=== PATIENT | female | born 1930 | race Caucasian/White ===

== ENCOUNTER → 2018-01-26 | Outpatient (CLI) | payer MEDICARE ==
[~2018-01-26] MED LIST: ASPIRIN E.C. 8181 MG PO; AZO URINARY PAI95 MG PO; CALCIUM CITRAT200 MG PO; COLACE 100100 MG/CAP PO; COZAAR 25MG25 MG/TAB PO; CYTOMEL 5MC5 MCG/TAB PO; DAZIDOX10 MG PO; DESYREL 50MG50 MG PO; DUO-KAPS1 CAP PO; EFFEXOR 75M75 MG/TAB PO; FISH OIL1000 MG PO; GARLIC SUPPLEM300 MG PO; HCTZ 25MG TAB25 MG PO; IMDUR 30MG30 MG/TAB PO; KLOR-CON 1010 MEQ PO; LINZESS290CAP PO; LIPITOR20 MG PO; METAMUCIL3.4 GM/Dos PO; MEVACOR10 MG PO; MILK OF MA400 MG/5 M PO; MIRALAX PA17 GM/Dose PO; MOTRIN 200200 MG/TAB PO; MSIR30 MG PO; NASONEX SPRAY17 GM NS; NITROSTAT0.4 MG/TAB SL; NORVASC 5MG5 MG/TAB PO; PERCOCET 325 MG1 TAB PO; PLAVIX 75MG TAB75 MG PO; PRILOSEC 20MG20 MG PO; PROTONIX 40MG T40 MG PO; SYNTHROID0.05 MG/TA PO; SYSTANE 0.3-0.1 EACH OP; SYSTANE 0.4%-0.1 SOL OU; TOPROL XL 25MG25 MG PO; TRAVATAN Z 2.52.5 ML OD; TYLENOL 500MG500 MG PO; ULTRAM 50MG TAB50 MG PO; VITAMIN C500 MG PO; VITAMIN D 400400 IU PO; VITAMIN D31000 I1 PO; WOMEN'S DAILY F1 TAB PO; XALATAN EYE DROPS OU; XANAX .25M0.25 MG/TA PO; ZANTAC 150MG T150 MG PO; ZESTRIL 5MG5 MG PO; ZOCOR 20MG20 MG PO; ZYRTEC 10MG10 MG PO
== END ==
LOC: COL.PUL 01-05 10:00
DX: R06.02 Shortness of breath (principal); Z87.891 Personal history of nicotine dependence
CPT/HCPCS: J7674

== ENCOUNTER → 2018-08-15 | Outpatient (CLI) | payer MEDICARE | LOC: MC.RAD 09:59 | DX: N63.10 Unspecified lump in the right breast, unspecified quadrant (principal); Z98.82 Breast implant status ==

== ENCOUNTER 2018-09-07 06:44 | Day surgery (SDC) | payer MEDICARE ==
[2018-09-07] VITALS (7 sets, daily range): BP systolic 99–168; BP diastolic 42–72; PULSE 51–69; TEMP 97.7–97.8
[~2018-09-07] VITALS: Ht 143.5 cm; Wt 49.1 kg
[2018-09-07] MEDS ORDERED: IMDUR 60MG60 MG/TAB PO (08:25)
[2018-09-07] MEDS ORDERED: METAMUCIL MUL0.52 GM PO (08:36)
[2018-09-07] MEDS ORDERED: MIRALAX PA17 GM/Dose PO (08:38)
[2018-09-07] MEDS ORDERED: PULMICORT0.5 MG/2 M IH (08:39)
[2018-09-07] MEDS ORDERED: ALBUTEROL0.83 MG/ML IH (08:41)
--- NOTE | 2018-09-07 11:45 | NUR ---
Pt to [facility] via cart from PACU. Pt very drowsy. Awakens to verbal stimuli, but if not engaged in conversation pt falls back to sleep quickly. Dispite being so drowsy, pt rates pain 8/10 to right breast/axilary region. Explained to pt that it is not safe to administer more pain medication at this time. Encouraged pt to sleep. Pt states "ok" and quickly falls back to sleep. Respirations even and unlabored. O2 on at 2 liters via nasal canula. Dressing to right breast/axilary is clean, dry, and intact. Polina brought back to room, but is going to go get lunch and come back. Call light within reach. Side rails up x2.
--- NOTE | 2018-09-07 12:00 | NUR ---
Pt sleeping. Respirations even and unlabored. Call light within reach.
--- NOTE | 2018-09-07 12:15 | NUR ---
Pt continues to rest. Respirations even and unlabored.
--- NOTE | 2018-09-07 12:30 | NUR ---
Pt awake. Needs to use restroom. Pt assisted up to restroom with walker and stand by assistance. Pt voids large amount without difficulties. Pt assisted back to bed. Pt rates pain to right breast/axilary 3/10. Coffee, Water, and muffin given. O2 discontinued. Will continue to monitor. Call light within reach.
--- NOTE | 2018-09-07 13:00 | NUR ---
Pt continues to rest. Consumed 100% of muffin, coffee and water. Denies nausea. Polina in rooom. Will continue to monitor. Call light within reach.
--- NOTE | 2018-09-07 13:30 | NUR ---
Discharge instructions reviewed. Pt and nicholas voice understanding. IV site discontinued with all parts intact. Pt up to dress with assistance from nicholas. Call light within reach.
--- NOTE | 2018-09-07 14:00 | NUR ---
Pt escorted to private car via wheel chair. Pt accompanied home by her nicholas.
== END 2018-09-07 14:00 | disposition home or self-care (01) ==
LOC: SDCO 06:44
DX: C50.411 Malignant neoplasm of upper-outer quadrant of right female breast (principal); I25.10 Atherosclerotic heart disease of native coronary artery without angina pectoris; J44.9 Chronic obstructive pulmonary disease, unspecified; Z79.02 Long term (current) use of antithrombotics/antiplatelets; E11.9 Type 2 diabetes mellitus without complications; Z17.0 Estrogen receptor positive status [ER+]; Z79.82 Long term (current) use of aspirin; I10 Essential (primary) hypertension; E78.5 Hyperlipidemia, unspecified; K59.00 Constipation, unspecified; I25.2 Old myocardial infarction; K21.9 Gastro-esophageal reflux disease without esophagitis; G47.33 Obstructive sleep apnea (adult) (pediatric); Z90.49 Acquired absence of other specified parts of digestive tract; Z85.820 Personal history of malignant melanoma of skin; Z82.49 Family history of ischemic heart disease and other diseases of the circulatory system; Z83.3 Family history of diabetes mellitus; Z88.2 Allergy status to sulfonamides; Z88.1 Allergy status to other antibiotic agents; Z88.6 Allergy status to analgesic agent; Z88.5 Allergy status to narcotic agent; Z87.891 Personal history of nicotine dependence; F41.9 Anxiety disorder, unspecified; F03.90 Unspecified dementia, unspecified severity, without behavioral disturbance, psychotic disturbance, mood disturbance, and anxiety; E03.9 Hypothyroidism, unspecified
CPT/HCPCS: J1100; J1885; J2250; J2405; J2704; J2795; J3010; J7030

== ENCOUNTER 2018-10-24 09:44 | Emergency (ER) | payer MEDICARE ==
[~2018-10-24] VITALS: Ht 142.2 cm; Wt 50.0 kg
[~2018-10-24 09:44] MED LIST changes: +ALBUTEROL0.83 MG/ML IH; +IMDUR 60MG60 MG/TAB PO; +METAMUCIL MUL0.52 GM PO; +PULMICORT0.5 MG/2 M IH
[2018-10-24 10:19] LABS: BASO % 0.1 % (0.0-2.0); EOS % 0.4 % (0-4.0); GRAN # 6.2 (1.4-6.5); GRAN % 72.3 % (42.2-75.2); HEMATOCRIT 39.6 % (37.0-47.0); LYMPH # 1.8 (1.2-3.4); LYMPH % 21.3 % (20.0-51.0); MEAN CELL VOLUME 92 fl (80.0-100.0); MEAN CORPUSCULAR HEMOGLOBIN 28 pg (27.0-31.0); MEAN CORPUSCULAR HGB CONC 30 g/dl (33.0-37.0); MEAN PLATELET VOLUME 8.8 fl (7.4-10.4); MONO # 0.5 (0.1-0.6); MONO % 5.7 % (1.7-9.3); PLATELET COUNT 248 K/mm3 (130-400); RED BLOOD COUNT 4.32 M/mm3 (4.10-5.30); REDCELL DISTRIBUTION WIDTH-CV 17.7 % (11.5-14.5)
[2018-10-24 10:29] LABS: ALBUMIN 4.2 gm/dL (3.5-5.0); BILIRUBIN,TOTAL 0.3 mg/dL (0.0-1.0); CALCIUM 9.7 mg/dL (8.4-10.2); CREATININE, serum 0.69 (0.52-1.25); POTASSIUM 4.1 mmol/L (3.4-5.0); TOTAL PROTEIN 7.4 gm/dL (6.4-8.2)
[2018-10-24] MEDS ORDERED: ARIMIDEX1 MG PO (10:44)
[2018-10-24] MEDS ORDERED: SYSTANE 0.4%-0.1 SOL OU (10:46)
[2018-10-24] MEDS ORDERED: XALATAN EYE DROPS OU (10:47)
[2018-10-24] MEDS ORDERED: PREDNISONE20 MG PO (12:30)
[2018-10-24] MEDS ORDERED: ZITHROMAX Z PA250 MG PO (12:30)
[2018-10-24 12:48] VITALS: BP 106/49; PULSE 64; TEMP 98
== END 2018-10-24 12:48 | disposition home or self-care (01) ==
LOC: COL.ER 09:44
PROVIDERS: Family Medicine
DX: J44.1 Chronic obstructive pulmonary disease with (acute) exacerbation (principal); Z79.82 Long term (current) use of aspirin; Z79.02 Long term (current) use of antithrombotics/antiplatelets
CPT/HCPCS: J7512; Q9967

== ENCOUNTER 2020-09-04 21:57 | Observation (INO) | payer MEDICARE ==
[~2020-09-04] VITALS: Ht 142.2 cm; Wt 47.4 kg
[~2020-09-04 21:57] MED LIST changes: +ARIMIDEX1 MG PO; +PREDNISONE20 MG PO; +ZITHROMAX Z PA250 MG PO
[2020-09-05 00:44] LABS: COLLECTION METHOD CATHETER
[2020-09-05 00:51] LABS: HEMATOCRIT 39.4 % (37.0-47.0); HEMOGLOBIN 12.9 g/dl (12.5-16.0); MEAN CELL VOLUME 97 fl (80.0-100.0); MEAN CORPUSCULAR HEMOGLOBIN 32 pg (27.0-31.0); MEAN CORPUSCULAR HGB CONC 33 g/dl (33.0-37.0); MEAN PLATELET VOLUME 9.4 fl (7.4-10.4); PLATELET COUNT 217 K/mm3 (130-400); RED BLOOD COUNT 4.08 M/mm3 (4.10-5.30); REDCELL DISTRIBUTION WIDTH-CV 14.1 % (11.5-14.5)
[2020-09-05 00:59] LABS: MUCOUS Present /lpf; PH 6 (5-8); SQUAMOUS EPITHELIAL 0-2 /hpf; URINE APPEARANCE Clear; URINE BACTERIA None Seen /hpf; URINE BILIRUBIN Negative (NEGATIVE); URINE BLOOD 3+ (NEGATIVE); URINE COLOR Yellow; URINE GLUCOSE Negative (NEGATIVE); URINE KETONE Trace (NEGATIVE); URINE LEUKOCYTE ESTERASE Trace (NEGATIVE); URINE NITRATE Negative (NEGATIVE); URINE PROTEIN(semi-quant) 2+ (NEGATIVE); URINE RBC 20-50 /hpf; URINE UROBILINOGEN Negative (NEGATIVE)
[2020-09-05 01:15] LABS: ALBUMIN 4.2 gm/dL (3.5-5.0); BILIRUBIN,TOTAL 0.5 mg/dL (0.0-1.0); CALCIUM 9.8 mg/dL (8.4-10.2); CREATININE, serum 0.66 (0.52-1.25); POTASSIUM 4.2 mmol/L (3.4-5.0); TOTAL PROTEIN 7.6 gm/dL (6.4-8.2)
[2020-09-05 01:19] LABS: BAND 10 % (0-10); LYMPHOCYTE 4 % (20.0-51.0); NEUTROPHILS 85 % (42.0-75.2); PLATELET ESTIMATE NORMAL (NORMAL)
[2020-09-05 01:28] LABS: TROPONIN-I 0.041 ng/mL (0.000-0.035)
[2020-09-05 07:21] VITALS: BP 180/62; PULSE 84; TEMP 98.2
[2020-09-05 11:54] VITALS: BP 139/48; PULSE 59; TEMP 98.3
--- NOTE | 2020-09-05 14:20 | NUR ---
The patient is sound asleep. SW contacted the patient's niece/DPOA-HC, Claudia Bennett (ph#[phone]), to discuss discharge plan. The patient lives in [place] with Claudia and Claudia's granddaughter. Claudia reports that the patient is independent with ADLs and has a walker. She states that the patient does not have any home health services. The patient's primary care provider is Jada Contreras APRN at [facility] in [place]. She receives her medications from [facility] in [place]. The patient's DPOA-HC is in EMR and it designates Claudia. Claudia reports that the patient is still pretty self sufficient and goes on walks down to the end of the block and sometimes around the block. Claudia reports no concerns with the patient returning back home with her upon discharge. PT/OT/ST have been ordered. *Dischare plan: home with niece/DPOA-HC, awaiting therapy recs*
[2020-09-05 17:02] VITALS: BP 133/47; PULSE 62; TEMP 98.3
[2020-09-05 20:37] VITALS: BP 145/55; PULSE 63; TEMP 98.5
[2020-09-05 23:59] VITALS: BP 135/49; PULSE 67; TEMP 98.1
[2020-09-06 04:50] VITALS: BP 137/57; PULSE 81; TEMP 98.1
--- NOTE | 2020-09-06 05:57 | NUR ---
PT SLEPT MAJORITY OF THE NIGHT WITH A FEW VISITS TO THE BATHROOM. PT USED CALL LIGHT ALL THROUGH OUT NIGHT TO AMBULATE. PT A/OX3, CURRENTLY ON NC SATURATING AT OVER 93 PERCENT. PT CURRENTLY DENIES PAIN, N/V/D. CALL LIGHT WITHIN REACH.
[2020-09-06 06:27] LABS: BASO % 0.2 % (0.0-2.0); EOS # 0.1 (0.0-0.7); EOS % 2.2 % (0-4.0); GRAN # 2.7 (1.4-6.5); GRAN % 66.7 % (42.2-75.2); HEMOGLOBIN 11.3 g/dl (12.5-16.0); LYMPH # 0.8 (1.2-3.4); MEAN CELL VOLUME 99 fl (80.0-100.0); MEAN CORPUSCULAR HEMOGLOBIN 31 pg (27.0-31.0); MEAN CORPUSCULAR HGB CONC 32 g/dl (33.0-37.0); MEAN PLATELET VOLUME 9.4 fl (7.4-10.4); MONO # 0.4 (0.1-0.6); MONO % 10.7 % (1.7-9.3); PLATELET COUNT 198 K/mm3 (130-400); RED BLOOD COUNT 3.61 M/mm3 (4.10-5.30); REDCELL DISTRIBUTION WIDTH-CV 14.4 % (11.5-14.5)
[2020-09-06 06:33] LABS: HEMATOCRIT 35.9 % (37.0-47.0)
[2020-09-06 06:39] LABS: CALCIUM 8.9 mg/dL (8.4-10.2); CREATININE, serum 0.51 (0.52-1.25); POTASSIUM 4.2 mmol/L (3.4-5.0)
[2020-09-06 06:50] LABS: TROPONIN-I 0.023 ng/mL (0.000-0.035)
[2020-09-06 06:58] LABS: MAGNESIUM 1.8 mg/dL (1.6-2.3)
[2020-09-06 07:41] VITALS: BP 160/74; PULSE 68; TEMP 98.3
[2020-09-06 11:38] VITALS: BP 168/78; PULSE 93; TEMP 98.4
[2020-09-06 16:49] VITALS: BP 166/72; PULSE 84; TEMP 98.8
[2020-09-06 19:17] VITALS: BP 139/52; PULSE 68; TEMP 98.8
[2020-09-06 20:00] VITALS: BP 139/52; PULSE 68; TEMP 98.8
[2020-09-07] VITALS: BP 157/72; PULSE 75; TEMP 98.7
[2020-09-07 04:00] VITALS: BP 152/68; PULSE 72; TEMP 97.9
--- NOTE | 2020-09-07 05:50 | NUR ---
PT DID NOT SLEEP MAJORITY OF THE NIGHT, HAD SEVERAL EPISODES OF CONFUSION, THIS NURSE REORIENTED PT TO PLACE AND SITUATION. PT DENIES PAIN. N/S INFUSING AT 75ML/HR TO RIGHT A/C. YOUSIF CATHETER PATENT AND FREE OF OBSTRUCTION. I&O RECORDED. BED LOW. DOOR OPEN. CALL LIGHT WITHIN REACH.
[2020-09-07 08:24] LABS: HEMATOCRIT 39.2 % (37.0-47.0); HEMOGLOBIN 12.8 g/dl (12.5-16.0); MEAN CELL VOLUME 97 fl (80.0-100.0); MEAN CORPUSCULAR HEMOGLOBIN 32 pg (27.0-31.0); MEAN CORPUSCULAR HGB CONC 33 g/dl (33.0-37.0); MEAN PLATELET VOLUME 9.2 fl (7.4-10.4); PLATELET COUNT 237 K/mm3 (130-400); RED BLOOD COUNT 4.06 M/mm3 (4.10-5.30); REDCELL DISTRIBUTION WIDTH-CV 13.5 % (11.5-14.5)
[2020-09-07 08:38] LABS: CALCIUM 9.1 mg/dL (8.4-10.2); CREATININE, serum 0.47 (0.52-1.25); POTASSIUM 3.9 mmol/L (3.4-5.0)
[2020-09-07] MEDS ORDERED: AZO URINARY PAI95 MG PO (09:46)
[2020-09-07] MEDS ORDERED: SENNA-LAX8.6 MG PO (09:50)
--- NOTE | 2020-09-07 10:00 | NUR ---
Shift assessment complete. Pt alert, partially oriented. Heart RRR. Lungs coarse to auscultation. Denies pain or nausea. Continuing to monitor.
[2020-09-07 10:11] VITALS: BP 149/63; PULSE 68; TEMP 98.2
--- NOTE | 2020-09-07 14:33 | NUR ---
Discharge teaching and humphries care discussed w/pt and niece. All questions answered and pt able to demonstrate how to empty drainage bag and perform catheter care. IV to right AC removed w/tip intact. Pt escorted out via wheelchair w/all belongings.
== END 2020-09-07 14:34 | disposition home or self-care (01) ==
LOC: COL.ER 21:57 → MEDICAL 09-05 03:12
PROVIDERS: Nurse Practitioner; Physician Assistant; ADMIT Internal Medicine
DX: R33.9 Retention of urine, unspecified (principal); N39.0 Urinary tract infection, site not specified; R39.89 Other symptoms and signs involving the genitourinary system; K59.09 Other constipation; G93.40 Encephalopathy, unspecified; M54.5 Low back pain; G89.29 Other chronic pain; K21.9 Gastro-esophageal reflux disease without esophagitis; I10 Essential (primary) hypertension; R74.8 Abnormal levels of other serum enzymes; I25.2 Old myocardial infarction; G47.33 Obstructive sleep apnea (adult) (pediatric); J44.9 Chronic obstructive pulmonary disease, unspecified; E03.9 Hypothyroidism, unspecified; E11.9 Type 2 diabetes mellitus without complications; M81.0 Age-related osteoporosis without current pathological fracture; M19.90 Unspecified osteoarthritis, unspecified site; F17.210 Nicotine dependence, cigarettes, uncomplicated; Z79.890 Hormone replacement therapy; Z79.82 Long term (current) use of aspirin; Z79.899 Other long term (current) drug therapy; Z85.3 Personal history of malignant neoplasm of breast; Z79.891 Long term (current) use of opiate analgesic; Z79.02 Long term (current) use of antithrombotics/antiplatelets
CPT/HCPCS: 99233-AI; G0378; J0696; J2270; J7030; J7120; Q9967

== ENCOUNTER 2020-09-21 09:34 | Emergency (ER) | payer MEDICARE ==
[~2020-09-21] VITALS: Ht 142.2 cm; Wt 48.6 kg
[~2020-09-21 09:34] MED LIST changes: +SENNA-LAX8.6 MG PO
[2020-09-21 09:50] VITALS: TEMP 97.9
[2020-09-21 10:36] LABS: COLLECTION METHOD CATHETER
[2020-09-21 10:51] LABS: PH 6 (5-8); SQUAMOUS EPITHELIAL None Seen /hpf; URINE APPEARANCE Hazy; URINE BACTERIA Rare /hpf; URINE BILIRUBIN Negative (NEGATIVE); URINE BLOOD Negative (NEGATIVE); URINE COLOR Yellow; URINE GLUCOSE Negative (NEGATIVE); URINE KETONE Negative (NEGATIVE); URINE LEUKOCYTE ESTERASE Negative (NEGATIVE); URINE NITRATE Negative (NEGATIVE); URINE PROTEIN(semi-quant) 2+ (NEGATIVE); URINE UROBILINOGEN Negative (NEGATIVE)
[2020-09-21] MEDS ORDERED: LIDODERM 5% PATC1 EA TP (11:57)
[2020-09-21 12:08] VITALS: BP 118/52; PULSE 58
== END 2020-09-21 12:09 | disposition home or self-care (01) ==
LOC: COL.ER 09:34
PROVIDERS: Emergency Medicine
DX: N39.0 Urinary tract infection, site not specified (principal); G93.40 Encephalopathy, unspecified; R41.0 Disorientation, unspecified; G89.29 Other chronic pain; I25.2 Old myocardial infarction; J44.9 Chronic obstructive pulmonary disease, unspecified; E11.9 Type 2 diabetes mellitus without complications; E03.9 Hypothyroidism, unspecified; K21.9 Gastro-esophageal reflux disease without esophagitis; Z87.891 Personal history of nicotine dependence; Z79.890 Hormone replacement therapy; Z88.6 Allergy status to analgesic agent; Z79.02 Long term (current) use of antithrombotics/antiplatelets; Z79.51 Long term (current) use of inhaled steroids

== ENCOUNTER 2020-10-31 17:34 | Inpatient (IN) | payer MEDICARE ==
[~2020-10-31] VITALS: Ht 142.2 cm; Wt 47.7 kg
[~2020-10-31 17:34] MED LIST changes: +LIDODERM 5% PATC1 EA TP
[2020-10-31 18:29] LABS: HEMATOCRIT 40.1 % (37.0-47.0); HEMOGLOBIN 13.3 g/dl (12.5-16.0); MEAN CELL VOLUME 98 fl (80.0-100.0); MEAN CORPUSCULAR HEMOGLOBIN 33 pg (27.0-31.0); MEAN CORPUSCULAR HGB CONC 33 g/dl (33.0-37.0); MEAN PLATELET VOLUME 9.5 fl (7.4-10.4); PLATELET COUNT 240 K/mm3 (130-400); RED BLOOD COUNT 4.09 M/mm3 (4.10-5.30); REDCELL DISTRIBUTION WIDTH-CV 14.5 % (11.5-14.5)
[2020-10-31 18:51] LABS: C-REACTIVE PROTEIN 7.6 mg/dL (0.0-0.9)
[2020-10-31 18:52] LABS: TROPONIN-I 0.021 ng/mL (0.000-0.035)
[2020-10-31 19:10] LABS: BAND 33 % (0-10); METAMYELOCYTE 1 % (0-0); NEUTROPHILS 64 % (42.0-75.2); PLATELET ESTIMATE NORMAL (NORMAL)
[2020-10-31 19:11] LABS: ALBUMIN 3.9 gm/dL (3.5-5.0); CALCIUM 9.5 mg/dL (8.4-10.2); CREATININE, serum 0.72 (0.52-1.25); TOTAL PROTEIN 6.8 gm/dL (6.4-8.2)
[2020-10-31 19:12] LABS: BILIRUBIN,TOTAL 0.4 mg/dL (0.0-1.0)
[2020-10-31 20:25] LABS: COLLECTION METHOD CLEAN CATCH
[2020-10-31 20:30] LABS: PH 6 (5-8); SQUAMOUS EPITHELIAL 0-2 /hpf; URINE APPEARANCE Hazy; URINE BACTERIA None Seen /hpf; URINE BILIRUBIN Negative (NEGATIVE); URINE BLOOD 3+ (NEGATIVE); URINE COLOR Yellow; URINE GLUCOSE 1+ (NEGATIVE); URINE KETONE Negative (NEGATIVE); URINE LEUKOCYTE ESTERASE 2+ (NEGATIVE); URINE NITRATE Negative (NEGATIVE); URINE PROTEIN(semi-quant) 2+ (NEGATIVE); URINE RBC >50 /hpf; URINE UROBILINOGEN Negative (NEGATIVE)
[2020-11-01] VITALS (8 sets, daily range): BP systolic 119–146; BP diastolic 43–64; PULSE 52–81; TEMP 97.5–98.5
--- NOTE | 2020-11-01 00:03 | NUR ---
PT UP TO MEDICAL FLOOR AT 2340, A/OX4, 02 2L NC, VSS, TELE MONITOR PLACED ON, PT REPORTS PAIN 7/10 TO RIGHT HIP, IV SITE RIGHT WRIST NO DRAINAGE/REDNESS/INFLAMMATION NOTED. NURSE WILL CONTINUE TO CONDUCT ASSESMENT. CALL LIGHT WITHIN REACH.
--- NOTE | 2020-11-01 06:15 | NUR ---
PT HAD UNEVENTFUL NIGHT, VSS, 02 2L NC, PT REPORTS PAIN TO RIGHT HIP AT 7/10. PT REMAINS A/OX4, ABLE TO ANSWER ALL ORIENTATION QUESTIONS CORRECTLY. CALL LIGHT WITHIN REACH.
--- NOTE | 2020-11-01 11:24 | NUR ---
SW met with patient to complete intake. Patient states that she lives in [place] with her niece Claudia Bennett [phone] who is also appointed as her DPOA-HC, and alt Tc Bennett [phone]. Patient states that she utilizes a walker and is independent with ADL's. Patient provides that her PCP is Dr. Du in [place] and her pharmacy is [facility]. Patient states that her plan is to go back to her nieces home upon DC, and has no concerns with doing so. Patient may need O2 up on dc. SW will continue to follow. DC Plan: home with niece in [place]
--- NOTE | 2020-11-01 12:12 | NUR ---
Chaplain mejias and offered support with patient.
--- NOTE | 2020-11-01 18:42 | NUR ---
PT RECEIVED RESTING IN BED. NO S/S OF DISTRESS NOTICED. PT DENIES HAVING PAIN. PT AWAKE AND ALERT. CALL-LIGHT IN REACH. BED IN LOW POSITION. V/S STABLE. BLOOD GLUCOSE MONITORED ORDERED. PT AMBULATES WITH HER WALKER. PT ATE HER MEALS. MEDICATIONS ADMINISTERED ORDERED. CT CHEST DONE. COMFORT MEASURES IN PLACE. WILL CONTINUE TO MONITOR.
--- NOTE | 2020-11-01 20:02 | NUR ---
THIS NURSE SPOKE TO PT'S DPOA NEETA. NEETA INQUIRED ABOUT PT'S THYROID MEDICATIONS TO ENSURE BOTH WERE ON PT'S EMAR. BOTH MEDICATIONS ARE ON PT'S EMAR. NEETA REQUESTED TO HOLD OFF ON 0700 PROTONIX ADMINISTRATION UNTIL 0900 SHE STATES TAKING HER THYROID MEDICATION WITH PROTONIX "MESSES WITH HER MIND" THIS NURSE RELAYED TO NEETA THAT MEDICATIONS ARE COMPATIBLE, SHE STATES TO NURSE "NO THEY ARE NOT, JUST DONT GIVE HER THYROID MEDICATION WITH ANYTHING ELSE. THIS NURSE ASSURED HER THRYOID MEDICATIONS HAVE BEEN TAKEN ON AN EMPTY STOMACH SINCE ADMISSION.THIS NURSE SPOKE TO JEANMARIE WHO IS A/OX4, THE PLAN IS TO ADMINSTER HER THYROID MEDICATION AT 0500 HER PROTONIX AT 0600 TO ENSURE SHE HAS BREAKFAST ON TIME. THIS NURSE WILL RELAY TO ONCOMING SHIFT TO HOLD OFF ON PROTONIX UNTIL AFTER HER THYROID MEDICATION ADMINISTRATION FOR FUTURE ADMINISTRATIONS.
[2020-11-02 04:05] VITALS: BP 153/79; PULSE 63; TEMP 97.5
--- NOTE | 2020-11-02 05:50 | NUR ---
PT HAD UNEVENTFUL NIGHT, PT WAS ABLE TO USE CALL LIGHT THROUGH OUT NIGHT AND AMBULATE WELL TO THE BATHROOM, PT DENIES PAIN,N,V,D. PT REMAINS A/0X4, VSS. 02 2L NC. ANTIBIOTICS ADMINISTERED ORDERED. BED LOW. CALL LIGHT WITHIN REACH.
[2020-11-02 07:24] LABS: BASO % 0.2 % (0.0-2.0); EOS # 0.1 (0.0-0.7); EOS % 0.9 % (0-4.0); GRAN # 4.4 (1.4-6.5); GRAN % 75.4 % (42.2-75.2); HEMATOCRIT 37.6 % (37.0-47.0); LYMPH # 0.9 (1.2-3.4); LYMPH % 16.1 % (20.0-51.0); MEAN CELL VOLUME 101 fl (80.0-100.0); MEAN CORPUSCULAR HEMOGLOBIN 32 pg (27.0-31.0); MEAN CORPUSCULAR HGB CONC 32 g/dl (33.0-37.0); MEAN PLATELET VOLUME 9.3 fl (7.4-10.4); MONO # 0.4 (0.1-0.6); MONO % 7.2 % (1.7-9.3); PLATELET COUNT 197 K/mm3 (130-400); RED BLOOD COUNT 3.73 M/mm3 (4.10-5.30); REDCELL DISTRIBUTION WIDTH-CV 14.5 % (11.5-14.5)
[2020-11-02 07:36] LABS: CREATININE, serum 0.6 (0.52-1.25); POTASSIUM 4.2 mmol/L (3.4-5.0)
[2020-11-02 07:47] LABS: CHOLESTEROL RISK RATIO 2.9
[2020-11-02 08:00] VITALS: BP 156/69; PULSE 59; TEMP 98.5
[2020-11-02 08:00] LABS: TSH w REFLEX 3.54 uIU/mL (0.465-4.680)
[2020-11-02] MEDS ORDERED: OMNICEF 300MG300 MG PO (10:21)
[2020-11-02] MEDS ORDERED: ZITHROMAX 250M250 MG PO (10:23)
[2020-11-02 12:00] VITALS: BP 129/49; PULSE 65; TEMP 98.3
--- NOTE | 2020-11-02 15:00 | NUR ---
PT BEING DISCHARGED AT THIS TIME. NO S/S OF DISTRESS NOTICED. DC INSTRUCTIONS REVIEWED WITH THE PT AND HER NIECE. ALL QUESTIONS ANSWERED. OXYGEN COMPANY REP EXPLAINED TO THE PT AND NIECE HOW TO USE THE OXYGEN CONCENTRATOR. PT AND NIECE ALSO MADE AWARE THAT NO FLAMMABLE PRODUCTS SHOULD BE CLOSE TO OXYGEN. PT IV ACCESS AND TELE MONITOR. REMOVED. TELE MONITOR RETURN TO SEAFOOD FARMER IN ICU. PT TRANSPORTED TO HER NIECE VEHICLE.
== END 2020-11-02 16:39 | disposition home health service (06) | DRG 689 ==
LOC: COL.ER 17:34 → MEDICAL 21:04
PROVIDERS: Nurse Practitioner; Personal Emergency Response Attendant; Student in an Organized Health Care Education/Training Program; ADMIT Internal Medicine
DX: N39.0 Urinary tract infection, site not specified (principal); J96.01 Acute respiratory failure with hypoxia; G93.41 Metabolic encephalopathy; G47.33 Obstructive sleep apnea (adult) (pediatric); J44.9 Chronic obstructive pulmonary disease, unspecified; G89.29 Other chronic pain; Z66 Do not resuscitate; M54.9 Dorsalgia, unspecified; E03.9 Hypothyroidism, unspecified; I10 Essential (primary) hypertension; Z20.822 Contact with and (suspected) exposure to COVID-19; R33.9 Retention of urine, unspecified; K59.04 Chronic idiopathic constipation; K21.9 Gastro-esophageal reflux disease without esophagitis; Z85.3 Personal history of malignant neoplasm of breast; H40.9 Unspecified glaucoma; Z79.82 Long term (current) use of aspirin; I25.2 Old myocardial infarction
CPT/HCPCS: 99223-AI; 99232-AI; A9284; J0696; J1650; J7030; J7512; Q9967

== ENCOUNTER 2020-11-18 02:42 | Observation (INO) | payer MEDICARE ==
[~2020-11-18] VITALS: Ht 142.2 cm; Wt 47.7 kg
[~2020-11-18 02:42] MED LIST changes: +OMNICEF 300MG300 MG PO; +ZITHROMAX 250M250 MG PO
[2020-11-18 04:10] LABS: HEMATOCRIT 45.7 % (37.0-47.0); HEMOGLOBIN 14.8 g/dl (12.5-16.0); MEAN CELL VOLUME 98 fl (80.0-100.0); MEAN CORPUSCULAR HEMOGLOBIN 32 pg (27.0-31.0); MEAN CORPUSCULAR HGB CONC 32 g/dl (33.0-37.0); MEAN PLATELET VOLUME 8.4 fl (7.4-10.4); PLATELET COUNT 263 K/mm3 (130-400); RED BLOOD COUNT 4.68 M/mm3 (4.10-5.30); REDCELL DISTRIBUTION WIDTH-CV 14.3 % (11.5-14.5)
[2020-11-18 04:20] LABS: ALBUMIN 4.6 gm/dL (3.5-5.0); BILIRUBIN,TOTAL 0.5 mg/dL (0.0-1.0); CALCIUM 9.9 mg/dL (8.4-10.2); CREATININE, serum 0.63 (0.52-1.25); POTASSIUM 4.1 mmol/L (3.4-5.0); TOTAL PROTEIN 8.2 gm/dL (6.4-8.2)
[2020-11-18 04:45] LABS: BAND 15 % (0-10); LYMPHOCYTE 10 % (20.0-51.0); NEUTROPHILS 74 % (42.0-75.2); PLATELET ESTIMATE NORMAL (NORMAL)
[2020-11-18 04:53] LABS: COLLECTION METHOD CLEAN CATCH
[2020-11-18 04:58] LABS: PH 7 (5-8); SQUAMOUS EPITHELIAL 0-2 /hpf; URINE APPEARANCE Clear; URINE BACTERIA None Seen /hpf; URINE BILIRUBIN Negative (NEGATIVE); URINE BLOOD Negative (NEGATIVE); URINE COLOR Yellow; URINE GLUCOSE Negative (NEGATIVE); URINE KETONE Trace (NEGATIVE); URINE LEUKOCYTE ESTERASE Negative (NEGATIVE); URINE NITRATE Negative (NEGATIVE); URINE PROTEIN(semi-quant) Negative (NEGATIVE); URINE UROBILINOGEN Negative (NEGATIVE)
--- NOTE | 2020-11-18 11:59 | NUR ---
Received report from NEFTALI Mccullough, in the ED. Pt arrived to floor. Alert/oriented x4. Steady gait w/rolling walker. Slightly BENTON. Pt denies any pain. Pt comfortable in bed, call scott in reach. RT in with patient.
[2020-11-18 12:24] VITALS: BP 136/56; PULSE 86; TEMP 98.8
[2020-11-18 17:16] VITALS: BP 112/46; PULSE 75; TEMP 98.3
--- NOTE | 2020-11-18 18:34 | NUR ---
Uneventful day. Pt resting in bed. Denies complaints of pain. Services offered; nothing needed at this time. Call scott in reach. Bed alarm on.
[2020-11-18 20:40] VITALS: BP 112/46; PULSE 78; TEMP 97.8
[2020-11-19] VITALS: BP 119/49; PULSE 64; TEMP 97.4
--- NOTE | 2020-11-19 02:55 | NUR ---
PT CURRENTLY RESTING.
--- NOTE | 2020-11-19 03:04 | NUR ---
THIS RN NOTICED THAT PRIOR NOTES HAVE NOT BEEN COLLECTED. ATTEMPT OF RECONSTRUCTION AT THIS TIME. 2000 - ASSESSMENT. PT ALERT AND ORIENTED, PT DROWSY UPON ENTRY. PT HAS RED, BLANCHABLE SPOTS NOTED OVER PT SPINE, WILL CONTINUE TO MONITOR. PT HAS SPIDER VEINS NOTED IN BILATERAL LOWER EXTREMITIES. PT HAS VARICOSE VEINS IN LEFT LOWER EXTREMITY. CAP REFILL <3S. PT NIECE AND ANTHONY VISITED ED TO DROP OFF HOME CPAP MACHINE. PT REFUSING CPAP AT THIS TIME WITH RESPIRATORY ATTEMPT TO PLACE. PT ABLE TO AMBULATE TO RESTROOM WITH FALL PRECAUTIONS OBSERVED AND WALKER UTILIZED. 0000 - PT AMBULATED TO BATHROOM. PT CONFUSED AT THIS TIME, LOOKING FOR SLIPPERS ON FLOOR3. PT REORIENTED TO BEST OF ABILITY. PT STATES, "YOU'RE JUST BEING STUPID" WHEN ASKED FOR NAME AND BIRTHDAY. PT CONTINUES TO REFUSE CPAP MACHINE, 2L VIA NC CURRENTLY ON. PT SATURATIONS STABLE AT THIS TIME.
[2020-11-19 03:56] VITALS: BP 115/45; PULSE 64; TEMP 98
--- NOTE | 2020-11-19 05:07 | NUR ---
PT CONTINUING ON PLAN OF CARE. PT ABLE TO PUSH CALL BUTTON TO USE RESTROOM, BED ALARMS SET AND FALL PRECAUTIONS OBSERVED. PT ABLE TO AMBULATE WITH WALKER. PT DENIED PAIN. PT ABLE TO REST DURING NIGHT WITH INTERMITTENT BATHROOM PRIVILEGES. PT NOTED TO HAVE MILD CONFUSION DURING SHIFT, REORIENTED NECESSARY. PT FREE FROM INJURY THIS SHIFT.
[2020-11-19 07:50] VITALS: BP 119/47; PULSE 78; TEMP 98.6
--- NOTE | 2020-11-19 08:00 | NUR ---
pharmacy called to verify imdur dose with lower blood pressures. Pharmacy state to hold until provider notified.
[2020-11-19 08:27] LABS: MEAN CELL VOLUME 98 fl (80.0-100.0); MEAN CORPUSCULAR HGB CONC 33 g/dl (33.0-37.0); MEAN PLATELET VOLUME 9.3 fl (7.4-10.4); PLATELET COUNT 230 K/mm3 (130-400); RED BLOOD COUNT 3.75 M/mm3 (4.10-5.30); REDCELL DISTRIBUTION WIDTH-CV 14.6 % (11.5-14.5)
[2020-11-19 08:33] LABS: HEMATOCRIT 36.9 % (37.0-47.0); MEAN CORPUSCULAR HEMOGLOBIN 32 pg (27.0-31.0)
[2020-11-19 08:39] LABS: CALCIUM 9.2 mg/dL (8.4-10.2); CREATININE, serum 0.6 (0.52-1.25); POTASSIUM 4.4 mmol/L (3.4-5.0)
[2020-11-19 09:14] LABS: BAND 9 % (0-10); HYPOCHROMIA 1+; LYMPHOCYTE 5 % (20.0-51.0); NEUTROPHILS 85 % (42.0-75.2); PLATELET ESTIMATE NORMAL (NORMAL)
--- NOTE | 2020-11-19 12:18 | NUR ---
Plans to retrun home in [place] and Reside with DR Claudia Bennett at . Claudia is a Production Material Handler and realtime court reporter child care center administrator to mother for the last five years. Patient is Hard of Hearing and does not have hearing devices. Readmit Intake: SW met with patient to obtaing permission to speak with her DTR about her care. Patient was able to give the daughters name, phone number and consent to talk about care. SW called DTR and dtr reports that the mother has lived with her for the last five years after an apparent overdose on Morphine. Dtr reports that she regulates and has a lock box for her mothers medications at home. Patient reports that two weeks ago her mother came to the hospital for a stay due to having a UTI. DTR reports that at the time of DC the patient was sent home wiht 1 liter of oxygen and the patient used it for 24 hours and decided that she did not want to charge the machince and it was to hard to carry the O2 tank and push a walker. reports that she is the DPOA legally. PCP is Dr. Ana Laura Montalvo but the patient also sees Ceci Cabrera, and Dr. Metcalf. DTR reports that they obtain there medications from [facility] without any difficulty for short term and long-term [employer] [facility]. Patient rpeorts having trouble breathing but will refuse to wear the O2 at home. Patient is also reported to refuse to eat foods. Patient has a walker, shower chair, grab bars, and handicap accessibility, has a transport chair. Dtr reports that the patient did follow up with PCP who advised to go back to the hospital. Will continue to follow for care supports. BRISEIDA educated DTR about supports to patient and family with case management. WF>
[2020-11-19 12:25] VITALS: BP 129/62; PULSE 90; TEMP 98.3
--- NOTE | 2020-11-19 12:29 | NUR ---
First visit from the renewable energy engineer. No needs right now.
[2020-11-19 16:52] VITALS: BP 132/58; PULSE 73; TEMP 98.5
[2020-11-19 20:07] VITALS: BP 151/57; PULSE 89; TEMP 98.2
--- NOTE | 2020-11-19 21:06 | NUR ---
Assessed around 1954. Alert and oriented x 4, and able to make needs known. Denies having pain and discomfort at this time. Peripheral INT to left wrist. Denies SOB and dyspnea. LS fine crackles. RT in with patient and refusing to put oxygen back on after nebulizer treatment. Agreeable to wear CPAP instead. LS fine crackles. HRR. Capillary refill less than 3 seconds. Non-tenting skin turgor. BSAx4. Abdomen soft and non-tender. No edema. Voices no questions, needs, or concerns at this time. Resting in bed with call light within reach.
[2020-11-20 00:08] VITALS: BP 153/58; PULSE 66; TEMP 98.6
[2020-11-20 03:27] VITALS: BP 158/59; PULSE 68; TEMP 98.1
--- NOTE | 2020-11-20 06:08 | NUR ---
Patient has had some confusion this shift, but easily redirected. Received IV ABX per orders. Wore CPAP for half the night, then on oxygen at 2 L/min via NC. Voices no questions, needs, or concerns at this time. Resting in bed with call light within reach.
[2020-11-20 08:57] VITALS: BP 138/53; PULSE 68; TEMP 97.8
--- NOTE | 2020-11-20 09:00 | NUR ---
Shift assessment complete. Pt resting in bed, A&Ox4. Heart RRR. Lungs coarse to auscultation. NC on at 2 lpm O2. Denies SOA or other concerns. Denies further needs at this time. Call light in reach, bed alarm on. Continuing to monitor.
[2020-11-20 09:42] LABS: HEMATOCRIT 37.8 % (37.0-47.0); HEMOGLOBIN 12.2 g/dl (12.5-16.0); MEAN CELL VOLUME 98 fl (80.0-100.0); MEAN CORPUSCULAR HEMOGLOBIN 32 pg (27.0-31.0); MEAN CORPUSCULAR HGB CONC 32 g/dl (33.0-37.0); MEAN PLATELET VOLUME 9.3 fl (7.4-10.4); PLATELET COUNT 253 K/mm3 (130-400); RED BLOOD COUNT 3.86 M/mm3 (4.10-5.30); REDCELL DISTRIBUTION WIDTH-CV 14.5 % (11.5-14.5)
[2020-11-20 09:50] LABS: CALCIUM 9.3 mg/dL (8.4-10.2); CREATININE, serum 0.72 (0.52-1.25); POTASSIUM 4.1 mmol/L (3.4-5.0)
[2020-11-20 09:59] LABS: BAND 1 % (0-10); LYMPHOCYTE 6 % (20.0-51.0); NEUTROPHILS 92 % (42.0-75.2); PLATELET ESTIMATE NORMAL (NORMAL)
[2020-11-20 11:56] VITALS: BP 136/54; PULSE 72; TEMP 98.1
[2020-11-20 15:52] VITALS: BP 139/56; PULSE 66; TEMP 98.5
[2020-11-20 20:42] VITALS: BP 143/51; PULSE 73; TEMP 98.6
--- NOTE | 2020-11-20 23:55 | NUR ---
PT ALERT AND ORIENTED UPON ASSESSMENT. PT ABLE TO AMBULATE TO BATHROOM USING SBA AND WALKER. PT DENIES PAIN AT THIS TIME. PT HAD ELEVATED BLOOD SUGAR, LINA, STRIPPER CUTTER MACHINE NOTIFIED FOR MEDICATION MANAGEMENT. PT CALL LIGHT WITHIN REACH.
[2020-11-21] VITALS (7 sets, daily range): BP systolic 128–180; BP diastolic 51–80; PULSE 59–72; TEMP 97.5–98.2
--- NOTE | 2020-11-21 01:13 | NUR ---
PT BP ELEVATED, THIS RN HAD JUST TAKEN PT TO BATHROOM. PT DENIES SYMPTOMS. WILL CONTINUE TO MONITOR. PT COMPLAINED OF "BELLY ACHE" DENIES NAUSEA. TENDER TO PALPATION. PT DENIES NEEDING MEDICATION AT THIS TIME.
--- NOTE | 2020-11-21 05:16 | NUR ---
THIS RN RECHECKED BP MANUALLY, VALUE AT 180/80. LINA LEE NP CALLED TO ALERT OF ELEVATED BP. PRN HYDRALAZINE ORDERED.
--- NOTE | 2020-11-21 05:34 | NUR ---
PT ALERT AND ORIENTED THIS SHIFT. PT ABLE TO AMBULATE TO RESTROOM, STAND BY ASSIST. PT REPORTED STOMACH ACHE 5/10. PT DID NOT WANT MEDICATION AT THIS TIME. PT HAD ONE BOUT OF ELEVATED BLOOD PRESSURE, MANAGED WITH IV HYDRALAZINE PER ORDERS. PT FREE FROM INJURY THIS SHIFT.
[2020-11-21 08:45] LABS: CALCIUM 9.3 mg/dL (8.4-10.2); CREATININE, serum 0.59 (0.52-1.25); POTASSIUM 4.2 mmol/L (3.4-5.0)
[2020-11-21] MEDS ORDERED: COMBIRESP IH ×2 (10:08)
[2020-11-21] MEDS ORDERED: OMNICEF 300MG300 MG PO (10:09)
[2020-11-21 10:20] LABS: BASO % 0.1 % (0.0-2.0); GRAN # 8.9 (1.4-6.5); GRAN % 88.5 % (42.2-75.2); HEMATOCRIT 41.5 % (37.0-47.0); HEMOGLOBIN 13.3 g/dl (12.5-16.0); LYMPH # 0.8 (1.2-3.4); LYMPH % 8.1 % (20.0-51.0); MEAN CELL VOLUME 98 fl (80.0-100.0); MEAN CORPUSCULAR HEMOGLOBIN 31 pg (27.0-31.0); MEAN CORPUSCULAR HGB CONC 32 g/dl (33.0-37.0); MEAN PLATELET VOLUME 9.3 fl (7.4-10.4); MONO # 0.3 (0.1-0.6); MONO % 2.6 % (1.7-9.3); PLATELET COUNT 273 K/mm3 (130-400); RED BLOOD COUNT 4.25 M/mm3 (4.10-5.30); REDCELL DISTRIBUTION WIDTH-CV 14.3 % (11.5-14.5)
--- NOTE | 2020-11-21 12:27 | NUR ---
cash office worker met with patient and her niece to discuss discharge today and home health. Worker provided patient and niece the medicare home health share information and patient picked [facility]. Worker contacted [place] at [facility] and faxed clinical information and orders. Patient did not qualify for home oxygen. Patient will discharge home where she resides with niece and have skilled home health.
[2020-11-21] MEDS ORDERED: IPRATROPIUM BROM3 M1 IH (13:16)
--- NOTE | 2020-11-21 14:28 | NUR ---
SCHEDULED MEDICATIONS GIVEN. SHIFT ASSESSMENT PREFORMED. VSS. PRN TRAMADOL AND ICE PACK GIVEN FOR BACK PAIN RATED A 8/10. PATIENT STATED THAT THIS HAS ALLEVIATED THE PAIN AND MADE IT MORE MANAGEABLE. EXERCISE OXIMETRY DONE, PATIENT NOT REQUIRING O2 AT HOME. DISCHARGE INTRUCTIONS/EDUCATION GIVEN. ALL QUESTIONS ANSWERED. SHOWER GIVEN BEFORE DISCHARGE. PATIENT DENIES ANY FURTHER PAIN, DISCOMFORT, OR NEEDS AT THIS TIME. PATIENTS ESCORTED FROM BUILDING BY VIA MAU STAFF VIA WHEELCHAIR. NIECE TO TRANSPORT HOME.
== END 2020-11-21 13:45 | disposition home health service (06) ==
LOC: COL.ER 02:42 → MEDICAL 05:18
PROVIDERS: Personal Emergency Response Attendant; Physician Assistant; ADMIT Student in an Organized Health Care Education/Training Program
DX: J44.1 Chronic obstructive pulmonary disease with (acute) exacerbation (principal); J96.01 Acute respiratory failure with hypoxia; G47.33 Obstructive sleep apnea (adult) (pediatric); D72.829 Elevated white blood cell count, unspecified; R09.89 Other specified symptoms and signs involving the circulatory and respiratory systems; E43 Unspecified severe protein-calorie malnutrition; R33.9 Retention of urine, unspecified; M54.9 Dorsalgia, unspecified; G89.29 Other chronic pain; I10 Essential (primary) hypertension; E03.9 Hypothyroidism, unspecified; E11.9 Type 2 diabetes mellitus without complications; K21.9 Gastro-esophageal reflux disease without esophagitis; R53.81 Other malaise; K59.09 Other constipation; Z85.3 Personal history of malignant neoplasm of breast; Z79.890 Hormone replacement therapy; Z79.899 Other long term (current) drug therapy; Z79.82 Long term (current) use of aspirin; Z79.02 Long term (current) use of antithrombotics/antiplatelets; Z20.822 Contact with and (suspected) exposure to COVID-19
CPT/HCPCS: 99232-AI; G0378; J0360; J0456; J0696; J1100; J1650; J1815; J2920; J7030; J7050

== ENCOUNTER 2020-12-19 21:31 | Emergency (ER) | payer MEDICARE ==
[~2020-12-19] VITALS: Ht 142.2 cm; Wt 47.7 kg
[~2020-12-19 21:31] MED LIST changes: +COMBIRESP IH; +IPRATROPIUM BROM3 M1 IH
[2020-12-19 23:11] LABS: COLLECTION METHOD CLEAN CATCH
[2020-12-19 23:23] LABS: PH 5 (5-8); SQUAMOUS EPITHELIAL 0-2 /hpf; URINE APPEARANCE Clear; URINE BACTERIA None Seen /hpf; URINE BILIRUBIN Negative (NEGATIVE); URINE BLOOD 1+ (NEGATIVE); URINE COLOR Yellow; URINE GLUCOSE Negative (NEGATIVE); URINE KETONE Negative (NEGATIVE); URINE LEUKOCYTE ESTERASE Negative (NEGATIVE); URINE NITRATE Negative (NEGATIVE); URINE PROTEIN(semi-quant) 2+ (NEGATIVE); URINE UROBILINOGEN Negative (NEGATIVE)
[2020-12-19 23:57] VITALS: BP 150/67; PULSE 82; TEMP 98.1
== END 2020-12-19 23:57 | disposition home or self-care (01) ==
LOC: COL.ER 21:31
PROVIDERS: Emergency Medicine
DX: M54.5 Low back pain (principal); Z88.5 Allergy status to narcotic agent